=== PATIENT | female | born 1970 | race Caucasian/White ===

== ENCOUNTER 2016-05-09 18:56 | Emergency (ER) | payer MEDICAID ==
[~2016-05-09] VITALS: Ht 167.6 cm; Wt 90.0 kg
[~2016-05-09 18:56] MED LIST: RISPC50 IM
[2016-05-09 18:59] VITALS: BP 140/81
== END 2016-05-09 20:27 | disposition left against medical advice (07) ==
LOC: EMS 18:58
DX: R06.02 Shortness of breath (principal); F12.90 Cannabis use, unspecified, uncomplicated; F15.90 Other stimulant use, unspecified, uncomplicated; F17.210 Nicotine dependence, cigarettes, uncomplicated; Z53.21 Procedure and treatment not carried out due to patient leaving prior to being seen by health care provider

== ENCOUNTER 2016-05-10 18:15 | Emergency (ER) | payer MEDICAID, OTHER ==
[~2016-05-10] VITALS: Ht 154.9 cm; Wt 73.6 kg
[2016-05-10 21:10] VITALS: BP 113/65
[2016-05-10] MEDS ORDERED: LORazepam 1 MG TABLET PO ONE (21:15)
== END 2016-05-10 21:58 | disposition home or self-care (01) ==
LOC: EMS 18:16
DX: F41.9 Anxiety disorder, unspecified (principal); R06.4 Hyperventilation; F12.90 Cannabis use, unspecified, uncomplicated; F15.90 Other stimulant use, unspecified, uncomplicated; F17.210 Nicotine dependence, cigarettes, uncomplicated
CPT/HCPCS: 99282

== ENCOUNTER 2016-05-26 12:24 | Emergency (ER) | payer OTHER ==
[~2016-05-26] VITALS: Ht 154.9 cm; Wt 73.6 kg
[2016-05-26 12:44] VITALS: BP 133/84
== END 2016-05-26 16:57 | disposition left against medical advice (07) ==
LOC: EMS 12:26
DX: F41.9 Anxiety disorder, unspecified (principal); F31.9 Bipolar disorder, unspecified; F20.9 Schizophrenia, unspecified; F17.210 Nicotine dependence, cigarettes, uncomplicated; F12.90 Cannabis use, unspecified, uncomplicated; F15.90 Other stimulant use, unspecified, uncomplicated; Z53.21 Procedure and treatment not carried out due to patient leaving prior to being seen by health care provider

== ENCOUNTER 2016-06-16 12:59 | Emergency (ER) | payer OTHER ==
[~2016-06-16] VITALS: Ht 154.9 cm; Wt 73.6 kg
[2016-06-16 14:51] LABS: BASOPHILS % (AUTO) 0.8 % (0.0-2.0); EOSINOPHILS % (AUTO) 4.7 % (1.0-6.0); HEMATOCRIT 39.8 % (36-46); HEMOGLOBIN 13.3 g/dL (12.0-16.0); LYMPHOCYTES # (AUTO) 1.5 K/uL (1.0-4.8); LYMPHOCYTES % (AUTO) 27.2 % (22.0-44.0); MEAN CORPUSCULAR HEMOGLOBIN 30.6 pg (26.0-34.0); MEAN CORPUSCULAR HGB CONC 33.5 G/dL (31.0-37.0); MEAN CORPUSCULAR VOLUME 91 fL (80-100); MONOCYTES # (AUTO) 0.4 K/uL (0.1-1.0); MONOCYTES % (AUTO) 6.7 % (2.0-9.0); NEUTROPHILS # (AUTO) 3.4 K/uL (1.8-7.7); NEUTROPHILS % (AUTO) 60.6 % (40.0-70.0); PLATELET COUNT (AUTO) 304 K/uL (150-450); RED BLOOD CELL COUNT(AUTO) 4.35 MIL/uL (4.00-5.20); RED CELL DISTRIBUTION WIDTH 14.1 % (11.5-14.5); WHITE BLOOD COUNT (AUTO) 5.7 K/uL (4.5-11.0)
[2016-06-16 15:22] LABS: ANION GAP 5 mmol/L (8-16); CALCIUM, TOTAL 8.7 mg/dL (8.8-10.5); CARBON DIOXIDE 28 mmol/L (22-29); CHLORIDE 101 mmol/L (98-107); CREATININE 0.71 mg/dL (0.60-1.30); GLOMERULAR FILTR. RATE CALC > 60 mL/min (>60); POTASSIUM 4.9 mmol/L (3.5-5.1); SODIUM SERUM 134 mmol/L (136-145); UREA NITROGEN, BLOOD 5 mg/dL (7-18)
[2016-06-16 15:29] LABS: ALANINE AMINOTRANSFERASE 49 U/L (12-78); ALBUMIN 3.6 g/dL (3.4-5.0); ASPARTATE AMINOTRANSFERASE 35 U/L (15-37); BILIRUBIN,TOTAL 0.3 mg/dL (0.1-1.0); TOTAL PROTEIN, SERUM 7.6 g/dL (6.4-8.2)
[2016-06-16] MEDS ORDERED: LORazepam 2 MG TABLET PO ONE (16:00)
[2016-06-16 16:47] VITALS: BP 140/100
== END 2016-06-16 18:14 | disposition home or self-care (01) ==
LOC: EMS 13:01
DX: F41.9 Anxiety disorder, unspecified (principal); F31.9 Bipolar disorder, unspecified; F20.9 Schizophrenia, unspecified; F17.210 Nicotine dependence, cigarettes, uncomplicated; F12.90 Cannabis use, unspecified, uncomplicated; F15.90 Other stimulant use, unspecified, uncomplicated
CPT/HCPCS: 36415; 80053; 80307; 85025; 99284; G0480

== ENCOUNTER 2016-09-22 01:40 | Emergency (ER) | payer OTHER ==
[~2016-09-22] VITALS: Ht 154.9 cm; Wt 69.1 kg
[2016-09-22] MEDS ORDERED: RISP4 PO (01:58)
[2016-09-22 02:38] VITALS: BP 126/72
== END 2016-09-22 02:40 | disposition home or self-care (01) ==
LOC: EMS 01:41
DX: S80.861A Insect bite (nonvenomous), right lower leg, initial encounter (principal); S80.862A Insect bite (nonvenomous), left lower leg, initial encounter; F25.9 Schizoaffective disorder, unspecified; F31.9 Bipolar disorder, unspecified; F12.90 Cannabis use, unspecified, uncomplicated; F15.90 Other stimulant use, unspecified, uncomplicated; F17.210 Nicotine dependence, cigarettes, uncomplicated; W57.XXXA Bitten or stung by nonvenomous insect and other nonvenomous arthropods, initial encounter; Y93.89 Activity, other specified; Y92.89 Other specified places as the place of occurrence of the external cause; Y99.8 Other external cause status
CPT/HCPCS: 99282; 99406

== ENCOUNTER 2016-09-29 08:55 | Emergency (ER) | payer OTHER ==
[~2016-09-29] VITALS: Ht 154.9 cm; Wt 75.0 kg
[~2016-09-29 08:55] MED LIST changes: +RISP4 PO; -RISPC50 IM
[2016-09-29 09:52] VITALS: BP 130/81
[2016-09-29] MEDS ORDERED: LORazepam 1 MG TABLET PO ONE (10:45)
== END 2016-09-29 11:16 | disposition home or self-care (01) ==
LOC: EMS 08:57
DX: F25.9 Schizoaffective disorder, unspecified (principal); F41.9 Anxiety disorder, unspecified; F31.9 Bipolar disorder, unspecified; F12.90 Cannabis use, unspecified, uncomplicated; F15.90 Other stimulant use, unspecified, uncomplicated; F17.210 Nicotine dependence, cigarettes, uncomplicated
CPT/HCPCS: 99284

== ENCOUNTER 2016-10-17 21:39 | Emergency (ER) | payer OTHER ==
[~2016-10-17] VITALS: Ht 154.9 cm; Wt 73.0 kg
[2016-10-17 21:46] VITALS: BP 131/89
[2016-10-17 22:24] LABS: BASOPHILS # (AUTO) 0.04 K/uL (0.00-0.20); BASOPHILS % (AUTO) 0.4 % (0.0-2.0); EOSINOPHILS # (AUTO) 0.08 K/uL (0.00-0.70); EOSINOPHILS % (AUTO) 0.73 % (1.0-6.0); HEMATOCRIT 39.3 % (36-46); HEMOGLOBIN 13.2 g/dL (12.0-16.0); LYMPHOCYTES # (AUTO) 2.4 K/uL (1.0-4.8); LYMPHOCYTES % (AUTO) 21.6 % (22.0-44.0); MEAN CORPUSCULAR HEMOGLOBIN 31.5 pg (26.0-34.0); MEAN CORPUSCULAR HGB CONC 33.4 G/dL (31.0-37.0); MEAN CORPUSCULAR VOLUME 94 fL (80-100); MONOCYTES # (AUTO) 0.8 K/uL (0.1-1.0); MONOCYTES % (AUTO) 6.8 % (2.0-9.0); NEUTROPHILS # (AUTO) 7.7 K/uL (1.8-7.7); NEUTROPHILS % (AUTO) 70.5 % (40.0-70.0); PLATELET COUNT (AUTO) 297 K/uL (150-450); RED BLOOD CELL COUNT(AUTO) 4.17 MIL/uL (4.00-5.20); RED CELL DISTRIBUTION WIDTH 13.6 % (11.5-14.5); WHITE BLOOD COUNT (AUTO) 10.9 K/uL (4.5-11.0)
[2016-10-17 22:31] LABS: ANION GAP 10 mmol/L (8-16); CALCIUM, TOTAL 9.4 mg/dL (8.8-10.5); CARBON DIOXIDE 28 mmol/L (22-29); CHLORIDE 104 mmol/L (98-107); GLOMERULAR FILTR. RATE CALC > 60 mL/min (>60); SODIUM SERUM 142 mmol/L (136-145); UREA NITROGEN, BLOOD 11 mg/dL (7-18)
[2016-10-17 22:37] LABS: ALANINE AMINOTRANSFERASE 52 U/L (12-78); ALBUMIN 4.1 g/dL (3.4-5.0); ASPARTATE AMINOTRANSFERASE 41 U/L (15-37); BILIRUBIN,TOTAL 1.1 mg/dL (0.1-1.0); TOTAL PROTEIN, SERUM 8.1 g/dL (6.4-8.2)
== END 2016-10-17 22:30 | disposition left against medical advice (07) ==
LOC: EMS 21:43
DX: Z00.8 Encounter for other general examination (principal); F31.9 Bipolar disorder, unspecified; F20.9 Schizophrenia, unspecified; F41.9 Anxiety disorder, unspecified; F12.90 Cannabis use, unspecified, uncomplicated; F15.90 Other stimulant use, unspecified, uncomplicated; F17.210 Nicotine dependence, cigarettes, uncomplicated
CPT/HCPCS: 36415; 80053; 84703; 85025; G0480

== ENCOUNTER 2016-11-10 16:35 | Emergency (ER) | payer OTHER ==
[2016-11-10] MEDS ORDERED: RISPC50 IM (23:58)
== END 2016-11-10 18:07 | disposition left against medical advice (07) ==
LOC: EMS 16:38
DX: M79.673 Pain in unspecified foot (principal); Z53.21 Procedure and treatment not carried out due to patient leaving prior to being seen by health care provider

== ENCOUNTER 2016-11-10 23:19 | Emergency (ER) | payer OTHER ==
[~2016-11-10] VITALS: Ht 157.5 cm; Wt 70.5 kg
[2016-11-10 23:50] VITALS: BP 124/80
[2016-11-10] MEDS ORDERED: RISPC50 IM (23:58)
[2016-11-11 00:34] LABS: BASOPHILS # (AUTO) 0.05 K/uL (0.00-0.20); BASOPHILS % (AUTO) 0.7 % (0.0-2.0); EOSINOPHILS # (AUTO) 0.33 K/uL (0.00-0.70); EOSINOPHILS % (AUTO) 4.78 % (1.0-6.0); HEMOGLOBIN 13.1 g/dL (12.0-16.0); LYMPHOCYTES # (AUTO) 2.6 K/uL (1.0-4.8); LYMPHOCYTES % (AUTO) 38.1 % (22.0-44.0); MEAN CORPUSCULAR HEMOGLOBIN 31.9 pg (26.0-34.0); MEAN CORPUSCULAR HGB CONC 33.6 G/dL (31.0-37.0); MEAN CORPUSCULAR VOLUME 95 fL (80-100); MONOCYTES # (AUTO) 0.4 K/uL (0.1-1.0); MONOCYTES % (AUTO) 5.8 % (2.0-9.0); NEUTROPHILS # (AUTO) 3.5 K/uL (1.8-7.7); NEUTROPHILS % (AUTO) 50.6 % (40.0-70.0); PLATELET COUNT (AUTO) 233 K/uL (150-450); RED BLOOD CELL COUNT(AUTO) 4.11 MIL/uL (4.00-5.20); RED CELL DISTRIBUTION WIDTH 13.7 % (11.5-14.5); WHITE BLOOD COUNT (AUTO) 6.9 K/uL (4.5-11.0)
[2016-11-11 00:48] LABS: ANION GAP 7 mmol/L (8-16); CALCIUM, TOTAL 9.1 mg/dL (8.8-10.5); CARBON DIOXIDE 27 mmol/L (22-29); CHLORIDE 105 mmol/L (98-107); CREATININE 0.72 mg/dL (0.60-1.30); GLOMERULAR FILTR. RATE CALC > 60 mL/min (>60); POTASSIUM 4.3 mmol/L (3.5-5.1); SODIUM SERUM 139 mmol/L (136-145); UREA NITROGEN, BLOOD 7 mg/dL (7-18)
[2016-11-11 00:53] LABS: ALANINE AMINOTRANSFERASE 34 U/L (12-78); ALBUMIN 3.6 g/dL (3.4-5.0); ASPARTATE AMINOTRANSFERASE 24 U/L (15-37); BILIRUBIN,TOTAL 0.2 mg/dL (0.1-1.0)
== END 2016-11-11 02:49 | disposition left against medical advice (07) ==
LOC: EMS 23:21
DX: M79.672 Pain in left foot (principal); M79.671 Pain in right foot; F17.210 Nicotine dependence, cigarettes, uncomplicated; F12.90 Cannabis use, unspecified, uncomplicated; F19.90 Other psychoactive substance use, unspecified, uncomplicated; Z53.21 Procedure and treatment not carried out due to patient leaving prior to being seen by health care provider

== ENCOUNTER 2016-11-14 23:59 | Emergency (ER) | payer OTHER ==
[~2016-11-14] VITALS: Ht 167.6 cm; Wt 86.4 kg
[~2016-11-14 23:59] MED LIST changes: -RISP4 PO; +RISPC50 IM
[2016-11-15 00:24] VITALS: BP 146/71
== END 2016-11-15 02:00 | disposition left against medical advice (07) ==
LOC: EMS 11-15 00:01
DX: Z00.8 Encounter for other general examination (principal); F31.9 Bipolar disorder, unspecified; F20.9 Schizophrenia, unspecified; F17.210 Nicotine dependence, cigarettes, uncomplicated; F12.90 Cannabis use, unspecified, uncomplicated; F15.90 Other stimulant use, unspecified, uncomplicated; Z53.21 Procedure and treatment not carried out due to patient leaving prior to being seen by health care provider

== ENCOUNTER 2016-12-09 23:36 | Emergency (ER) | payer OTHER ==
[~2016-12-09] VITALS: Ht 154.9 cm; Wt 70.0 kg
[2016-12-09 23:56] VITALS: BP 136/88
[2016-12-10 00:28] LABS: BASOPHILS # (AUTO) 0.02 K/uL (0.00-0.20); BASOPHILS % (AUTO) 0.3 % (0.0-2.0); EOSINOPHILS # (AUTO) 0.13 K/uL (0.00-0.70); EOSINOPHILS % (AUTO) 1.81 % (1.0-6.0); HEMATOCRIT 37.2 % (36-46); HEMOGLOBIN 12.5 g/dL (12.0-16.0); LYMPHOCYTES # (AUTO) 1.8 K/uL (1.0-4.8); LYMPHOCYTES % (AUTO) 24.5 % (22.0-44.0); MEAN CORPUSCULAR HGB CONC 33.8 G/dL (31.0-37.0); MEAN CORPUSCULAR VOLUME 95 fL (80-100); MONOCYTES # (AUTO) 0.4 K/uL (0.1-1.0); MONOCYTES % (AUTO) 5.9 % (2.0-9.0); NEUTROPHILS % (AUTO) 67.5 % (40.0-70.0); PLATELET COUNT (AUTO) 245 K/uL (150-450); RED BLOOD CELL COUNT(AUTO) 3.92 MIL/uL (4.00-5.20); RED CELL DISTRIBUTION WIDTH 13.5 % (11.5-14.5); WHITE BLOOD COUNT (AUTO) 7.4 K/uL (4.5-11.0)
[2016-12-10 00:37] LABS: ANION GAP 8 mmol/L (8-16); CALCIUM, TOTAL 8.8 mg/dL (8.8-10.5); CARBON DIOXIDE 29 mmol/L (22-29); CHLORIDE 105 mmol/L (98-107); CREATININE 0.69 mg/dL (0.60-1.30); GLOMERULAR FILTR. RATE CALC > 60 mL/min (>60); POTASSIUM 4.3 mmol/L (3.5-5.1); SODIUM SERUM 142 mmol/L (136-145); UREA NITROGEN, BLOOD 6 mg/dL (7-18)
[2016-12-10 00:43] LABS: ALANINE AMINOTRANSFERASE 36 U/L (12-78); ALBUMIN 3.6 g/dL (3.4-5.0); ASPARTATE AMINOTRANSFERASE 26 U/L (15-37); BILIRUBIN,TOTAL 0.2 mg/dL (0.1-1.0); TOTAL PROTEIN, SERUM 7.3 g/dL (6.4-8.2)
== END 2016-12-10 00:43 | disposition left against medical advice (07) ==
LOC: EMS 23:37
DX: F41.9 Anxiety disorder, unspecified (principal); F31.9 Bipolar disorder, unspecified; F17.210 Nicotine dependence, cigarettes, uncomplicated; F12.90 Cannabis use, unspecified, uncomplicated; F19.90 Other psychoactive substance use, unspecified, uncomplicated; Z53.21 Procedure and treatment not carried out due to patient leaving prior to being seen by health care provider
CPT/HCPCS: 36415; 80053; 84703; 85025; G0480

== ENCOUNTER 2016-12-22 10:20 | Inpatient (IN) | payer MEDICAID, OTHER ==
[~2016-12-22] VITALS: Ht 157.5 cm; Wt 76.5 kg
[2016-12-22] MEDS ORDERED: ZOLPIDEM TARTRATE 10 MG TABLET PO PRN (11:45)
[2016-12-22 13:05] LABS: ANION GAP 8 mmol/L (8-16); BASOPHILS % (AUTO) 0.7 % (0.0-2.0); CALCIUM, TOTAL 8.7 mg/dL (8.8-10.5); CARBON DIOXIDE 27 mmol/L (22-29); CHLORIDE 108 mmol/L (98-107); EOSINOPHILS % (AUTO) 2.6 % (1.0-6.0); GLOMERULAR FILTR. RATE CALC > 60 mL/min (>60); HEMATOCRIT 37.1 % (36-46); HEMOGLOBIN 12.9 g/dL (12.0-16.0); LYMPHOCYTES # (AUTO) 1.9 K/uL (1.0-4.8); LYMPHOCYTES % (AUTO) 26.7 % (22.0-44.0); MEAN CORPUSCULAR HEMOGLOBIN 32.5 pg (26.0-34.0); MEAN CORPUSCULAR HGB CONC 34.8 G/dL (31.0-37.0); MEAN CORPUSCULAR VOLUME 93 fL (80-100); MONOCYTES # (AUTO) 0.4 K/uL (0.1-1.0); MONOCYTES % (AUTO) 5.3 % (2.0-9.0); NEUTROPHILS # (AUTO) 4.7 K/uL (1.8-7.7); NEUTROPHILS % (AUTO) 64.7 % (40.0-70.0); PLATELET COUNT (AUTO) 264 K/uL (150-450); POTASSIUM 4.3 mmol/L (3.5-5.1); RED BLOOD CELL COUNT(AUTO) 3.98 MIL/uL (4.00-5.20); RED CELL DISTRIBUTION WIDTH 13.8 % (11.5-14.5); SODIUM SERUM 143 mmol/L (136-145); UREA NITROGEN, BLOOD 8 mg/dL (7-18); WHITE BLOOD COUNT (AUTO) 7.3 K/uL (4.5-11.0)
[2016-12-22 13:10] LABS: ALANINE AMINOTRANSFERASE 38 U/L (12-78); ALBUMIN 3.5 g/dL (3.4-5.0); ASPARTATE AMINOTRANSFERASE 26 U/L (15-37); BILIRUBIN,TOTAL 0.3 mg/dL (0.1-1.0); TOTAL PROTEIN, SERUM 7.1 g/dL (6.4-8.2)
[2016-12-22] MEDS: HALOPERIDOL 5 MG TABLET PO PRN (13:53)
[2016-12-22] MEDS: LORazepam 2 MG TABLET PO PRN (13:53)
[2016-12-22 14:10] VITALS: BP 127/86
[2016-12-23 05:33] LABS: CHOL/HDL RATIO 3.2 (3.9-5.7)
[2016-12-23] MEDS: LORazepam 2 MG TABLET PO PRN (07:43)
[2016-12-23] MEDS: HALOPERIDOL 5 MG TABLET PO PRN (07:43)
[2016-12-23 08:03] VITALS: BP_SYST 113; BP_SYST 114; BP_DIAS 65; BP_DIAS 77
[2016-12-23] MEDS ORDERED: RisperiDONE MICROSPHERES 50 MG/2 ML SYRINGE IM ONE (12:30)
[2016-12-23] MEDS: QUEtiapine FUMARATE 200 MG TABLET PO SCH ×2 (16:00→20:20)
[2016-12-23] MEDS: DIVALPROEX SODIUM 500 MG ER TABLET PO SCH (20:16)
[2016-12-23] MEDS ORDERED: ACETAMINOPHEN 325 MG TABLET PO PRN (22:00)
[2016-12-23] MEDS ORDERED: IBUPROFEN 400 MG TABLET PO PRN (22:00)
[2016-12-23 22:34] VITALS: BP 112/61
[2016-12-24 00:08] VITALS: BP 116/75
[2016-12-24 08:13] VITALS: BP 102/64
[2016-12-24 08:46] LABS: HEMOGLOBIN A1C 5.9 % (4.5-6.2)
[2016-12-24 08:55] LABS: THYROID STIMULATING HORMONE 0.53 uIU/mL (0.36-3.74)
[2016-12-24] MEDS: QUEtiapine FUMARATE 200 MG TABLET PO SCH ×3 (09:00→17:00)
[2016-12-24] MEDS: HALOPERIDOL 5 MG TABLET PO PRN (13:34)
[2016-12-24 16:33] VITALS: BP 117/69
[2016-12-24] MEDS: LORazepam 2 MG TABLET PO PRN (18:35)
[2016-12-24] MEDS: DIVALPROEX SODIUM 500 MG ER TABLET PO SCH (20:12)
[2016-12-25 00:48] VITALS: BP 104/60
[2016-12-25 08:31] VITALS: BP 101/62
[2016-12-25] MEDS: QUEtiapine FUMARATE 200 MG TABLET PO SCH ×4 (09:00→17:00)
[2016-12-25] MEDS: NICOTINE 14 MG/24 HOUR PATCH TD SCH (09:38)
[2016-12-25] MEDS: LORazepam 2 MG TABLET PO PRN ×2 (13:02→20:03)
[2016-12-25 16:41] VITALS: BP 107/60
[2016-12-25] MEDS: DIVALPROEX SODIUM 500 MG ER TABLET PO SCH (20:03)
[2016-12-26 01:27] VITALS: BP 107/62
[2016-12-26] MEDS: QUEtiapine FUMARATE 200 MG TABLET PO SCH ×3 (09:00→17:38)
[2016-12-26] MEDS: NICOTINE 14 MG/24 HOUR PATCH TD SCH (09:21)
[2016-12-26 09:24] VITALS: BP 95/55
[2016-12-26 16:36] VITALS: BP 114/67
[2016-12-26] MEDS: LORazepam 2 MG TABLET PO PRN (17:38)
[2016-12-26] MEDS: DIVALPROEX SODIUM 500 MG ER TABLET PO SCH (20:24)
[2016-12-27 00:53] VITALS: BP 110/64
[2016-12-27] MEDS: LORazepam 2 MG TABLET PO PRN (08:08)
[2016-12-27] MEDS: NICOTINE 14 MG/24 HOUR PATCH TD SCH (08:08)
[2016-12-27] MEDS: QUEtiapine FUMARATE 200 MG TABLET PO SCH ×4 (08:08→13:00)
[2016-12-27 09:11] VITALS: BP 101/68
[2016-12-27] MEDS ORDERED: DIVA500T52 PO (12:56)
[2016-12-27] MEDS ORDERED: QUET200T PO (12:56)
== END 2016-12-27 14:15 | disposition home or self-care (01) | DRG 750 ==
LOC: EMS 10:24 → AHU 12:04 → B2S 12-23 22:45
PROVIDERS: ADMIT Psychiatry & Neurology Psychiatry; ATTEND Psychiatry & Neurology Psychiatry
DX: F20.0 Paranoid schizophrenia (principal); E11.9 Type 2 diabetes mellitus without complications; R45.851 Suicidal ideations; I10 Essential (primary) hypertension; E78.5 Hyperlipidemia, unspecified; F11.90 Opioid use, unspecified, uncomplicated; F15.90 Other stimulant use, unspecified, uncomplicated; F17.200 Nicotine dependence, unspecified, uncomplicated; F31.9 Bipolar disorder, unspecified; M19.90 Unspecified osteoarthritis, unspecified site; Z90.49 Acquired absence of other specified parts of digestive tract
CPT/HCPCS: 83036; 84443; 99285; G0480; J2794

== ENCOUNTER 2017-02-03 10:20 | Emergency (ER) | payer MEDICAID, OTHER ==
[~2017-02-03] VITALS: Ht 162.6 cm; Wt 68.1 kg
[~2017-02-03 10:20] MED LIST changes: +DIVA500T52 PO; +QUET200T PO; -RISPC50 IM
[2017-02-03 10:24] VITALS: BP 133/77
[2017-02-03] MEDS ORDERED: RISPC50 IM (10:25)
== END 2017-02-03 11:11 | disposition home or self-care (01) ==
LOC: EMS 10:24
DX: F20.9 Schizophrenia, unspecified (principal); F31.9 Bipolar disorder, unspecified; F41.9 Anxiety disorder, unspecified; F17.210 Nicotine dependence, cigarettes, uncomplicated
CPT/HCPCS: 99284

== ENCOUNTER 2017-02-27 21:19 | Emergency (ER) | payer OTHER ==
[~2017-02-27] VITALS: Ht 154.9 cm; Wt 69.1 kg
[~2017-02-27 21:19] MED LIST changes: -QUET200T PO; +RISPC50 IM
[2017-02-27 21:23] VITALS: BP 122/95
== END 2017-02-27 21:51 | disposition left against medical advice (07) ==
LOC: EMS 21:20
DX: Z00.8 Encounter for other general examination (principal); F41.9 Anxiety disorder, unspecified; F31.9 Bipolar disorder, unspecified; F17.210 Nicotine dependence, cigarettes, uncomplicated; F19.90 Other psychoactive substance use, unspecified, uncomplicated; Z53.21 Procedure and treatment not carried out due to patient leaving prior to being seen by health care provider

== ENCOUNTER 2017-07-01 13:55 | Emergency (ER) | payer OTHER ==
[~2017-07-01] VITALS: Ht 154.9 cm; Wt 65.9 kg
[2017-07-01 14:06] VITALS: BP 113/75
== END 2017-07-01 17:27 | disposition left against medical advice (07) ==
LOC: EMS 13:56
DX: Z53.21 Procedure and treatment not carried out due to patient leaving prior to being seen by health care provider (principal)

== ENCOUNTER 2017-07-07 06:06 | Emergency (ER) | payer OTHER ==
[~2017-07-07] VITALS: Ht 157.5 cm; Wt 75.0 kg
[2017-07-07 06:07] VITALS: BP 118/62
== END 2017-07-07 07:07 | disposition left against medical advice (07) ==
LOC: EMS 06:07
DX: Z53.21 Procedure and treatment not carried out due to patient leaving prior to being seen by health care provider (principal)

== ENCOUNTER 2017-07-21 18:25 | Emergency (ER) | payer OTHER ==
[~2017-07-21 18:25] MED LIST changes: -DIVA500T52 PO
== END 2017-07-21 19:09 | disposition left against medical advice (07) ==
LOC: EMS 18:28
DX: Z53.21 Procedure and treatment not carried out due to patient leaving prior to being seen by health care provider (principal)

== ENCOUNTER 2017-09-12 16:54 | Emergency (ER) | payer OTHER ==
[~2017-09-12] VITALS: Ht 154.9 cm; Wt 65.9 kg
[2017-09-12 16:59] VITALS: BP 135/95
== END 2017-09-12 17:59 | disposition left against medical advice (07) ==
LOC: EMS 16:55
DX: Z00.8 Encounter for other general examination (principal); Z53.21 Procedure and treatment not carried out due to patient leaving prior to being seen by health care provider

== ENCOUNTER 2017-10-14 06:35 | Emergency (ER) | payer MEDICAID, OTHER ==
[~2017-10-14] VITALS: Ht 157.5 cm; Wt 64.5 kg
[~2017-10-14 06:35] MED LIST changes: -RISPC50 IM; +VITAD1000 PO
[2017-10-14 07:44] VITALS: BP 106/52
[2017-10-14 08:03] LABS: BASOPHILS % (AUTO) 1.2 % (0.0-2.0); EOSINOPHILS % (AUTO) 1.8 % (1.0-6.0); HEMATOCRIT 36.2 % (36-46); HEMOGLOBIN 12.5 g/dL (12.0-16.0); LYMPHOCYTES # (AUTO) 1.9 K/uL (1.0-4.8); LYMPHOCYTES % (AUTO) 29.2 % (22.0-44.0); MEAN CORPUSCULAR HEMOGLOBIN 31.3 pg (26.0-34.0); MEAN CORPUSCULAR HGB CONC 34.4 G/dL (31.0-37.0); MEAN CORPUSCULAR VOLUME 91 fL (80-100); MONOCYTES # (AUTO) 0.5 K/uL (0.1-1.0); MONOCYTES % (AUTO) 7.2 % (2.0-9.0); NEUTROPHILS % (AUTO) 60.6 % (40.0-70.0); PLATELET COUNT (AUTO) 222 K/uL (150-450); RED BLOOD CELL COUNT(AUTO) 3.98 MIL/uL (4.00-5.20); RED CELL DISTRIBUTION WIDTH 12.9 % (11.5-14.5)
[2017-10-14 08:17] LABS: ANION GAP 8 mmol/L (8-16); CALCIUM, TOTAL 8.9 mg/dL (8.8-10.5); CARBON DIOXIDE 29 mmol/L (22-29); CHLORIDE 102 mmol/L (98-107); CREATININE 0.76 mg/dL (0.60-1.30); GLOMERULAR FILTR. RATE CALC > 60 mL/min (>60); GLUCOSE,RANDOM 95 mg/dL (70-110); POTASSIUM 3.7 mmol/L (3.5-5.1); SODIUM SERUM 139 mmol/L (136-145); UREA NITROGEN, BLOOD 13 mg/dL (7-18)
[2017-10-14 08:20] LABS: ALANINE AMINOTRANSFERASE 52 U/L (12-78); ALBUMIN 3.8 g/dL (3.4-5.0); ALKALINE PHOSPHATASE 83 U/L (46-116); ASPARTATE AMINOTRANSFERASE 36 U/L (15-37); BILIRUBIN,TOTAL 0.5 mg/dL (0.1-1.0); TOTAL PROTEIN, SERUM 7.5 g/dL (6.4-8.2)
[2017-10-14 10:28] LABS: AMPHET/METH SCREEN,URINE POSITIVE (NEGATIVE); BARBITURATE SCREEN, URINE NEGATIVE (NEGATIVE); BENZODIAZEPINES SCREEN,URINE NEGATIVE (NEGATIVE); CANNABINOID SCREEN,URINE POSITIVE (NEGATIVE); COCAINE SCREEN,URINE NEGATIVE (NEGATIVE); METHADONE SCREEN, URINE NEGATIVE (NEGATIVE); OPIATE SCREEN,URINE NEGATIVE (NEGATIVE)
[2017-10-14 10:34] LABS: PHENCYCLIDINE SCREEN,URINE NEGATIVE (NEGATIVE)
== END 2017-10-14 12:55 | disposition home or self-care (01) ==
LOC: EMS 06:36
DX: F20.9 Schizophrenia, unspecified (principal); F31.9 Bipolar disorder, unspecified; F15.90 Other stimulant use, unspecified, uncomplicated; F17.210 Nicotine dependence, cigarettes, uncomplicated
CPT/HCPCS: 36415; 80053; 80307; 85025; 99285; 99406; G0480

== ENCOUNTER 2017-10-22 19:20 | Emergency (ER) | payer OTHER ==
[~2017-10-22] VITALS: Ht 154.9 cm; Wt 65.0 kg
[2017-10-22 20:14] LABS: BASOPHILS % (AUTO) 0.9 % (0.0-2.0); HEMATOCRIT 34.6 % (36-46); LYMPHOCYTES # (AUTO) 1.9 K/uL (1.0-4.8); LYMPHOCYTES % (AUTO) 30.9 % (22.0-44.0); MEAN CORPUSCULAR HEMOGLOBIN 31.6 pg (26.0-34.0); MEAN CORPUSCULAR HGB CONC 34.6 G/dL (31.0-37.0); MEAN CORPUSCULAR VOLUME 92 fL (80-100); MONOCYTES # (AUTO) 0.4 K/uL (0.1-1.0); MONOCYTES % (AUTO) 7.2 % (2.0-9.0); NEUTROPHILS # (AUTO) 3.4 K/uL (1.8-7.7); PLATELET COUNT (AUTO) 228 K/uL (150-450); RED BLOOD CELL COUNT(AUTO) 3.78 MIL/uL (4.00-5.20); RED CELL DISTRIBUTION WIDTH 13.4 % (11.5-14.5)
[2017-10-22 20:26] LABS: ANION GAP 5 mmol/L (8-16); CALCIUM, TOTAL 8.5 mg/dL (8.8-10.5); CARBON DIOXIDE 29 mmol/L (22-29); CHLORIDE 105 mmol/L (98-107); CREATININE 0.75 mg/dL (0.60-1.30); GLOMERULAR FILTR. RATE CALC > 60 mL/min (>60); GLUCOSE,RANDOM 108 mg/dL (70-110); POTASSIUM 3.8 mmol/L (3.5-5.1); SODIUM SERUM 139 mmol/L (136-145); UREA NITROGEN, BLOOD 13 mg/dL (7-18)
[2017-10-22 20:31] LABS: ALANINE AMINOTRANSFERASE 50 U/L (12-78); ALBUMIN 3.5 g/dL (3.4-5.0); ALKALINE PHOSPHATASE 88 U/L (46-116); ASPARTATE AMINOTRANSFERASE 27 U/L (15-37); BILIRUBIN,TOTAL 0.2 mg/dL (0.1-1.0); TOTAL PROTEIN, SERUM 6.9 g/dL (6.4-8.2)
[2017-10-22 21:40] VITALS: BP 121/84
== END 2017-10-22 21:58 | disposition home or self-care (01) ==
LOC: EMS 19:22
DX: F25.9 Schizoaffective disorder, unspecified (principal); F31.9 Bipolar disorder, unspecified; F17.210 Nicotine dependence, cigarettes, uncomplicated; F15.90 Other stimulant use, unspecified, uncomplicated
CPT/HCPCS: 36415; 80053; 84703; 85025; 99285; G0480

== ENCOUNTER 2018-02-01 14:28 | Emergency (ER) | payer OTHER ==
[~2018-02-01] VITALS: Ht 154.9 cm; Wt 69.1 kg
[2018-02-01] MEDS ORDERED: RISPC25 IM (14:44)
[2018-02-01 16:19] VITALS: BP 128/77
== END 2018-02-01 16:44 | disposition home or self-care (01) ==
LOC: EMS 14:30
DX: F20.9 Schizophrenia, unspecified (principal); F41.9 Anxiety disorder, unspecified; F31.9 Bipolar disorder, unspecified; F17.210 Nicotine dependence, cigarettes, uncomplicated; F15.90 Other stimulant use, unspecified, uncomplicated; Z90.49 Acquired absence of other specified parts of digestive tract; Z98.890 Other specified postprocedural states; Z79.899 Other long term (current) drug therapy
CPT/HCPCS: 99406

== ENCOUNTER 2018-02-04 13:52 | Inpatient (IN) | payer MEDICAID, OTHER ==
[~2018-02-04] VITALS: Ht 162.6 cm; Wt 76.4 kg
[~2018-02-04 13:52] MED LIST changes: +RISPC25 IM; -VITAD1000 PO
[2018-02-04] MEDS ORDERED: DiphenhydrAMINE HCL 50 MG/ML VIAL IM ONE (14:45)
[2018-02-04] MEDS ORDERED: HALOPERIDOL LACTATE 5 MG/ML VIAL IM ONE (14:45)
[2018-02-04] MEDS ORDERED: LORazepam 2 MG/ML VIAL IM ONE (14:45)
[2018-02-04 15:09] LABS: BASOPHILS % (AUTO) 0.6 % (0.0-2.0); EOSINOPHILS % (AUTO) 5.3 % (1.0-6.0); HEMATOCRIT 32.2 % (36-46); HEMOGLOBIN 11.2 g/dL (12.0-16.0); LYMPHOCYTES # (AUTO) 1.9 K/uL (1.0-4.8); LYMPHOCYTES % (AUTO) 33.5 % (22.0-44.0); MEAN CORPUSCULAR HEMOGLOBIN 32.7 pg (26.0-34.0); MEAN CORPUSCULAR HGB CONC 34.6 G/dL (31.0-37.0); MEAN CORPUSCULAR VOLUME 95 fL (80-100); MONOCYTES # (AUTO) 0.5 K/uL (0.1-1.0); MONOCYTES % (AUTO) 8.5 % (2.0-9.0); NEUTROPHILS # (AUTO) 2.9 K/uL (1.8-7.7); NEUTROPHILS % (AUTO) 52.1 % (40.0-70.0); PLATELET COUNT (AUTO) 243 K/uL (150-450); RED BLOOD CELL COUNT(AUTO) 3.41 MIL/uL (4.00-5.20); RED CELL DISTRIBUTION WIDTH 13.9 % (11.5-14.5)
[2018-02-04 15:19] LABS: ANION GAP 4 mmol/L (8-16); CALCIUM, TOTAL 8.3 mg/dL (8.8-10.5); CARBON DIOXIDE 28 mmol/L (22-29); CHLORIDE 107 mmol/L (98-107); CREATININE 0.72 mg/dL (0.60-1.30); GLOMERULAR FILTR. RATE CALC > 60 mL/min (>60); GLUCOSE,RANDOM 90 mg/dL (70-110); SODIUM SERUM 139 mmol/L (136-145); UREA NITROGEN, BLOOD 13 mg/dL (7-18)
[2018-02-04 15:40] LABS: ALANINE AMINOTRANSFERASE 72 U/L (12-78); ALBUMIN 3.3 g/dL (3.4-5.0); ALKALINE PHOSPHATASE 90 U/L (46-116); ASPARTATE AMINOTRANSFERASE 48 U/L (15-37); BILIRUBIN,TOTAL 0.2 mg/dL (0.1-1.0); HCG,QUANTITATIVE < 1 mIU/mL (0-6); TOTAL PROTEIN, SERUM 6.9 g/dL (6.4-8.2)
[2018-02-04] MEDS ORDERED: ZOLPIDEM TARTRATE 10 MG TABLET PO PRN (15:45)
[2018-02-04] MEDS ORDERED: HALOPERIDOL 5 MG TABLET PO PRN (15:45)
[2018-02-04 18:44] VITALS: BP 102/65
[2018-02-04] MEDS ORDERED: MAG HYDROX/AL HYDROX/SIMETH ES 30 ML SUSPENSION UDCUP PO PRN (19:15)
[2018-02-04] MEDS ORDERED: IBUPROFEN 400 MG TABLET PO PRN (19:15)
[2018-02-04] MEDS ORDERED: MAGNESIUM HYDROXIDE SUSPENSION 30 ML UDCUP PO PRN (19:15)
[2018-02-04] MEDS ORDERED: PETROLATUM,WHITE 71 GM JELLY TP PRN (19:15)
[2018-02-04] MEDS ORDERED: NICOTINE 14 MG/24 HOUR PATCH TD PRN (19:15)
[2018-02-04] MEDS ORDERED: ACETAMINOPHEN 325 MG TABLET PO PRN (19:15)
[2018-02-04] MEDS ORDERED: CloNIDine HCL 0.1 MG TABLET PO PRN (19:15)
[2018-02-04] MEDS ORDERED: ONDANSETRON HCL 4 MG TABLET PO PRN (19:15)
[2018-02-04] MEDS ORDERED: GuaiFENesin/D-METHORPHAN [SUGAR-FREE] 200-20MG/10 ML SYRUP UDCUP PO PRN (19:15)
[2018-02-04] MEDS ORDERED: ALBUTEROL SULFATE HFA 90 MCG/PUFF 8 GM INHALER IH PRN (19:15)
[2018-02-04] MEDS ORDERED: LOPERAMIDE HCL 2 MG CAPSULE PO PRN (19:15)
[2018-02-04] MEDS ORDERED: DOCUSATE SODIUM 100 MG CAPSULE PO PRN (19:15)
[2018-02-04 22:57] LABS: GLUCOMETER DEV NAME(LOC) BV3S 2; GLUCOSE,POINT OF CARE 92 MG/DL (70-110)
[2018-02-05 06:15] VITALS: BP 111/61
[2018-02-05 08:11] VITALS: BP 103/68
[2018-02-05 08:36] LABS: BASOPHILS % (AUTO) 0.5 % (0.0-2.0); EOSINOPHILS % (AUTO) 5.4 % (1.0-6.0); HEMOGLOBIN 11.8 g/dL (12.0-16.0); LYMPHOCYTES # (AUTO) 1.2 K/uL (1.0-4.8); MEAN CORPUSCULAR HEMOGLOBIN 33.5 pg (26.0-34.0); MEAN CORPUSCULAR HGB CONC 34.7 G/dL (31.0-37.0); MEAN CORPUSCULAR VOLUME 96 fL (80-100); MONOCYTES # (AUTO) 0.3 K/uL (0.1-1.0); MONOCYTES % (AUTO) 6.3 % (2.0-9.0); NEUTROPHILS # (AUTO) 3.3 K/uL (1.8-7.7); NEUTROPHILS % (AUTO) 63.8 % (40.0-70.0); PLATELET COUNT (AUTO) 245 K/uL (150-450); RED BLOOD CELL COUNT(AUTO) 3.53 MIL/uL (4.00-5.20); RED CELL DISTRIBUTION WIDTH 13.8 % (11.5-14.5)
[2018-02-05 09:02] LABS: ALANINE AMINOTRANSFERASE 69 U/L (12-78); ALBUMIN 3.1 g/dL (3.4-5.0); ALKALINE PHOSPHATASE 79 U/L (46-116); ANION GAP 1 mmol/L (8-16); ASPARTATE AMINOTRANSFERASE 53 U/L (15-37); BILIRUBIN,TOTAL 0.3 mg/dL (0.1-1.0); CALCIUM, TOTAL 8.7 mg/dL (8.8-10.5); CARBON DIOXIDE 32 mmol/L (22-29); CHLORIDE 106 mmol/L (98-107); CHOL/HDL RATIO 2.5 (3.9-5.7); CHOLESTEROL 149 mg/dL (131-200); CREATININE 0.73 mg/dL (0.60-1.30); FREE T4 (FREE THYROXINE) 0.75 ng/dL (0.76-1.46); GLOMERULAR FILTR. RATE CALC > 60 mL/min (>60); GLUCOSE,RANDOM 101 mg/dL (70-110); HDL CHOLESTEROL 59 mg/dL (40-60); LDL CHOL (CALC.) 76 mg/dL (0-130); POTASSIUM 4.4 mmol/L (3.5-5.1); SODIUM SERUM 139 mmol/L (136-145); THYROID STIMULATING HORMONE 0.62 uIU/mL (0.36-3.74); TOTAL PROTEIN, SERUM 6.3 g/dL (6.4-8.2); TRIGLYCERIDES 71 mg/dL (15-150); UREA NITROGEN, BLOOD 11 mg/dL (7-18)
[2018-02-05] MEDS ORDERED: RisperiDONE MICROSPHERES 25 MG/2 ML SYRINGE IM ONE (09:15)
[2018-02-05 17:53] VITALS: BP 128/72
[2018-02-05 23:12] LABS: GLUCOMETER DEV NAME(LOC) BV3S 2; GLUCOSE,POINT OF CARE 107 MG/DL (70-110)
[2018-02-05 23:12] LABS: GLUCOMETER DEV NAME(LOC) BV3S 2; GLUCOSE,POINT OF CARE 105 MG/DL (70-110)
[2018-02-06 06:28] VITALS: BP 102/63
[2018-02-06 06:33] LABS: GLUCOMETER DEV NAME(LOC) BV3S 2; GLUCOSE,POINT OF CARE 104 MG/DL (70-110)
[2018-02-06 08:27] VITALS: BP 109/65
[2018-02-06] MEDS: LORazepam 2 MG TABLET PO PRN (14:58)
[2018-02-06 16:03] VITALS: BP 105/65
[2018-02-07 01:22] VITALS: BP 111/67
[2018-02-07 06:57] LABS: GLUCOMETER DEV NAME(LOC) BV3S 2; GLUCOSE,POINT OF CARE 104 MG/DL (70-110)
[2018-02-07 07:38] LABS: GLUCOMETER DEV NAME(LOC) BV3S 2; GLUCOSE,POINT OF CARE 134 MG/DL (70-110)
[2018-02-07 08:00] VITALS: BP 98/60
[2018-02-07] MEDS: LORazepam 2 MG TABLET PO PRN (09:26)
[2018-02-07] MEDS ORDERED: RISPC50 IM (11:43)
[2018-02-19] MEDS ORDERED: RisperiDONE MICROSPHERES 50 MG/2 ML SYRINGE IM SCH (09:00)
== END 2018-02-07 13:45 | disposition home or self-care (01) | DRG 750 ==
LOC: EMS 13:53 → B3A 17:06
PROVIDERS: ADMIT Psychiatry & Neurology Child & Adolescent Psychiatry; ATTEND Psychiatry & Neurology Child & Adolescent Psychiatry
DX: F25.0 Schizoaffective disorder, bipolar type (principal); R45.851 Suicidal ideations; E11.9 Type 2 diabetes mellitus without complications; D64.9 Anemia, unspecified; E55.9 Vitamin D deficiency, unspecified; E78.5 Hyperlipidemia, unspecified; F17.200 Nicotine dependence, unspecified, uncomplicated; I10 Essential (primary) hypertension; M19.90 Unspecified osteoarthritis, unspecified site; F41.9 Anxiety disorder, unspecified; Z90.49 Acquired absence of other specified parts of digestive tract; Z71.6 Tobacco abuse counseling; F19.10 Other psychoactive substance abuse, uncomplicated; Z71.51 Drug abuse counseling and surveillance of drug abuser
CPT/HCPCS: 83036; 84436; 84439; 84443; 96372; G0480; J1200; J1630; J2060; J2794

== ENCOUNTER 2018-03-24 15:56 | Emergency (ER) | payer MEDICAID, OTHER ==
[~2018-03-24] VITALS: Ht 165.1 cm; Wt 69.1 kg
[~2018-03-24 15:56] MED LIST changes: -RISPC25 IM; +RISPC50 IM
[2018-03-24] MEDS ORDERED: LORazepam 1 MG TABLET PO ONE (16:30)
[2018-03-24 17:29] VITALS: BP 125/85
== END 2018-03-24 17:37 | disposition home or self-care (01) ==
LOC: EMS 15:56
DX: F41.9 Anxiety disorder, unspecified (principal); F31.9 Bipolar disorder, unspecified; F20.9 Schizophrenia, unspecified; F17.210 Nicotine dependence, cigarettes, uncomplicated; F19.90 Other psychoactive substance use, unspecified, uncomplicated
CPT/HCPCS: 99406

== ENCOUNTER 2018-06-28 22:55 | Emergency (ER) | payer OTHER | END 2018-06-28 23:07 | disposition left against medical advice (07) | LOC: EMS 22:57 | DX: Z00.00 Encounter for general adult medical examination without abnormal findings (principal); Z53.21 Procedure and treatment not carried out due to patient leaving prior to being seen by health care provider ==

== ENCOUNTER 2018-07-09 09:12 | Inpatient (IN) | payer MEDICAID, OTHER ==
[~2018-07-09] VITALS: Ht 157.5 cm; Wt 60.8 kg
[2018-07-09 11:20] LABS: BASOPHILS % (AUTO) 0.6 % (0.0-2.0); EOSINOPHILS % (AUTO) 1.5 % (1.0-6.0); HEMATOCRIT 37.1 % (36-46); HEMOGLOBIN 12.4 g/dL (12.0-16.0); LYMPHOCYTES # (AUTO) 1.7 K/uL (1.0-4.8); LYMPHOCYTES % (AUTO) 27.8 % (22.0-44.0); MEAN CORPUSCULAR HEMOGLOBIN 31.3 pg (26.0-34.0); MEAN CORPUSCULAR HGB CONC 33.5 G/dL (31.0-37.0); MEAN CORPUSCULAR VOLUME 93 fL (80-100); MONOCYTES # (AUTO) 0.4 K/uL (0.1-1.0); MONOCYTES % (AUTO) 7.2 % (2.0-9.0); NEUTROPHILS # (AUTO) 3.9 K/uL (1.8-7.7); NEUTROPHILS % (AUTO) 62.9 % (40.0-70.0); PLATELET COUNT (AUTO) 245 K/uL (150-450); RED BLOOD CELL COUNT(AUTO) 3.98 MIL/uL (4.00-5.20)
[2018-07-09] MEDS ORDERED: DiphenhydrAMINE HCL 25 MG CAPSULE PO ONE (11:30)
[2018-07-09] MEDS ORDERED: HALOPERIDOL 5 MG TABLET PO ONE (11:30)
[2018-07-09] MEDS ORDERED: LORazepam 2 MG TABLET PO ONE (11:30)
[2018-07-09 11:39] LABS: ALANINE AMINOTRANSFERASE 44 U/L (12-78); ALBUMIN 3.5 g/dL (3.4-5.0); ALKALINE PHOSPHATASE 82 U/L (46-116); ANION GAP 5 mmol/L (8-16); ASPARTATE AMINOTRANSFERASE 33 U/L (15-37); BILIRUBIN,TOTAL 0.3 mg/dL (0.1-1.0); CALCIUM, TOTAL 8.7 mg/dL (8.8-10.5); CARBON DIOXIDE 25 mmol/L (22-29); CHLORIDE 98 mmol/L (98-107); CREATININE 0.55 mg/dL (0.60-1.30); GLOMERULAR FILTR. RATE CALC > 60 mL/min (>60); GLUCOSE,RANDOM 89 mg/dL (70-110); SODIUM SERUM 128 mmol/L (136-145); TOTAL PROTEIN, SERUM 7.2 g/dL (6.4-8.2); UREA NITROGEN, BLOOD 9 mg/dL (7-18)
[2018-07-09] MEDS ORDERED: ZOLPIDEM TARTRATE 10 MG TABLET PO PRN (11:45)
[2018-07-09] MEDS ORDERED: POTASSIUM CHLORIDE 20 MEQ ER TABLET PO ONE (17:00)
[2018-07-09] MEDS ORDERED: CloNIDine HCL 0.1 MG TABLET PO PRN (18:15)
[2018-07-09] MEDS ORDERED: GLUCAGON,HUMAN RECOMBINANT 1 MG VIAL IM PRN (18:15)
[2018-07-09] MEDS ORDERED: MAG HYDROX/AL HYDROX/SIMETH ES 30 ML SUSPENSION UDCUP PO PRN (18:15)
[2018-07-09] MEDS ORDERED: ONDANSETRON HCL 4 MG TABLET PO PRN (18:15)
[2018-07-09] MEDS ORDERED: PETROLATUM,WHITE 28 GM JELLY TP PRN (18:15)
[2018-07-09] MEDS ORDERED: INSULIN LISPRO 100 UNITS/ML SQ PRN (18:15)
[2018-07-09] MEDS ORDERED: IBUPROFEN 600 MG TABLET PO PRN (18:15)
[2018-07-09] MEDS ORDERED: ACETAMINOPHEN 325 MG TABLET PO PRN (18:15)
[2018-07-09] MEDS ORDERED: ALBUTEROL SULFATE HFA 90 MCG/PUFF 8 GM INHALER IH PRN (18:15)
[2018-07-09] MEDS ORDERED: MAGNESIUM HYDROXIDE SUSPENSION 30 ML UDCUP PO PRN (18:15)
[2018-07-09] MEDS ORDERED: BENZOCAINE/MENTHOL LOZENGE MM PRN (18:15)
[2018-07-09] MEDS ORDERED: LOPERAMIDE HCL 2 MG CAPSULE PO PRN (18:15)
[2018-07-09] MEDS ORDERED: BACITRACIN 28.4 GM OINTMENT TP PRN (18:15)
[2018-07-09 18:20] LABS: GLUCOMETER DEV NAME(LOC) BV3S.; GLUCOSE,POINT OF CARE 79 MG/DL (70-110)
[2018-07-09] MEDS: HALOPERIDOL 5 MG TABLET PO SCH (21:00)
[2018-07-10 03:44] VITALS: BP 101/71
[2018-07-10 07:34] LABS: ANION GAP 8 mmol/L (8-16); CALCIUM, TOTAL 9.2 mg/dL (8.8-10.5); CARBON DIOXIDE 27 mmol/L (22-29); CHLORIDE 105 mmol/L (98-107); CREATININE 0.72 mg/dL (0.60-1.30); GLOMERULAR FILTR. RATE CALC > 60 mL/min (>60); GLUCOSE,RANDOM 87 mg/dL (70-110); POTASSIUM 4.5 mmol/L (3.5-5.1); SODIUM SERUM 140 mmol/L (136-145); UREA NITROGEN, BLOOD 10 mg/dL (7-18)
[2018-07-10] MEDS: DOCUSATE SODIUM 100 MG CAPSULE PO SCH (08:38)
[2018-07-10] MEDS: OMEPRAZOLE 20 MG CAPSULE PO SCH (08:38)
[2018-07-10 12:30] LABS: GLUCOMETER DEV NAME(LOC) BV3S.; GLUCOSE,POINT OF CARE 119 MG/DL (70-110)
[2018-07-10 14:21] VITALS: BP 104/68
[2018-07-10] MEDS: HALOPERIDOL 5 MG TABLET PO PRN (14:21)
[2018-07-10 16:47] VITALS: BP 108/68
[2018-07-10 17:34] LABS: GLUCOMETER DEV NAME(LOC) BV3S.; GLUCOSE,POINT OF CARE 104 MG/DL (70-110)
[2018-07-10 20:59] LABS: GLUCOMETER DEV NAME(LOC) BV3S.; GLUCOSE,POINT OF CARE 105 MG/DL (70-110)
[2018-07-10] MEDS: HALOPERIDOL 5 MG TABLET PO SCH (21:08)
[2018-07-10] MEDS: LORazepam 2 MG TABLET PO PRN (21:09)
[2018-07-11 06:03] VITALS: BP 114/62
[2018-07-11 07:19] LABS: GLUCOMETER DEV NAME(LOC) BV3S.; GLUCOSE,POINT OF CARE 92 MG/DL (70-110)
[2018-07-11 08:17] VITALS: BP 105/56
[2018-07-11] MEDS: OMEPRAZOLE 20 MG CAPSULE PO SCH (08:40)
[2018-07-11] MEDS: DOCUSATE SODIUM 100 MG CAPSULE PO SCH (08:40)
[2018-07-11 09:20] VITALS: BP 112/70
[2018-07-11] MEDS: LORazepam 2 MG TABLET PO PRN (09:29)
[2018-07-11 12:19] LABS: GLUCOMETER DEV NAME(LOC) BV3S.; GLUCOSE,POINT OF CARE 107 MG/DL (70-110)
[2018-07-11 17:09] LABS: GLUCOMETER DEV NAME(LOC) BV3S.; GLUCOSE,POINT OF CARE 96 MG/DL (70-110)
[2018-07-11 17:42] VITALS: BP 107/76
[2018-07-11] MEDS: HALOPERIDOL 5 MG TABLET PO SCH (21:06)
[2018-07-11 21:32] LABS: GLUCOMETER DEV NAME(LOC) BV3S.; GLUCOSE,POINT OF CARE 113 MG/DL (70-110)
[2018-07-12 00:22] VITALS: BP 123/72
[2018-07-12 06:24] LABS: GLUCOMETER DEV NAME(LOC) BV3S.; GLUCOSE,POINT OF CARE 92 MG/DL (70-110)
[2018-07-12 08:16] VITALS: BP 127/76
[2018-07-12] MEDS: DOCUSATE SODIUM 100 MG CAPSULE PO SCH (08:24)
[2018-07-12] MEDS: HALOPERIDOL 5 MG TABLET PO PRN ×2 (08:24→16:17)
[2018-07-12] MEDS: LORazepam 2 MG TABLET PO PRN ×2 (08:24→16:17)
[2018-07-12] MEDS: OMEPRAZOLE 20 MG CAPSULE PO SCH (08:24)
[2018-07-12 11:40] LABS: GLUCOMETER DEV NAME(LOC) BV3S.; GLUCOSE,POINT OF CARE 86 MG/DL (70-110)
[2018-07-12 16:47] VITALS: BP 110/60
[2018-07-12 17:20] LABS: GLUCOMETER DEV NAME(LOC) BV3S.; GLUCOSE,POINT OF CARE 115 MG/DL (70-110)
[2018-07-12] MEDS: HALOPERIDOL 5 MG TABLET PO SCH (21:14)
[2018-07-12 21:34] LABS: GLUCOMETER DEV NAME(LOC) BV3N.; GLUCOSE,POINT OF CARE 127 MG/DL (70-110)
[2018-07-13 06:30] LABS: GLUCOMETER DEV NAME(LOC) BV3S.; GLUCOSE,POINT OF CARE 93 MG/DL (70-110)
[2018-07-13 06:46] VITALS: BP 111/96
[2018-07-13] MEDS: DOCUSATE SODIUM 100 MG CAPSULE PO SCH (08:21)
[2018-07-13] MEDS: OMEPRAZOLE 20 MG CAPSULE PO SCH (08:21)
[2018-07-13] MEDS: LORazepam 2 MG TABLET PO PRN (08:58)
[2018-07-13 09:02] LABS: APPEARANCE,URINE CLEAR (CLEAR); BILIRUBIN,URINE NEGATIVE (NEGATIVE); GLUCOSE, URINE (UA) NEGATIVE (NEGATIVE); KETONES,URINE NEGATIVE (NEGATIVE); LEUKOCYTE ESTERASE ,URINE TRACE (NEGATIVE); NITRATE,URINE NEGATIVE (NEGATIVE); UROBILINOGEN,URINE 0.2 mg/dL (<=1.0)
[2018-07-13 09:12] LABS: AMPHET/METH SCREEN,URINE POSITIVE (NEGATIVE); BARBITURATE SCREEN, URINE NEGATIVE (NEGATIVE); BENZODIAZEPINES SCREEN,URINE NEGATIVE (NEGATIVE); CANNABINOID SCREEN,URINE NEGATIVE (NEGATIVE); COCAINE SCREEN,URINE NEGATIVE (NEGATIVE); METHADONE SCREEN, URINE NEGATIVE (NEGATIVE); OPIATE SCREEN,URINE NEGATIVE (NEGATIVE)
[2018-07-13 09:29] LABS: PHENCYCLIDINE SCREEN,URINE NEGATIVE (NEGATIVE)
[2018-07-13 10:27] LABS: OCCULT BLOOD,URINE TRACE (NEGATIVE)
[2018-07-13 10:28] LABS: BACTERIA,URINE None Seen /HPF (None Seen); PROTEIN,URINE NEGATIVE (NEGATIVE); RBC,URINE 0-2 /HPF (0-2); WBC,URINE 0-2 /HPF (0-5)
[2018-07-13 12:16] LABS: GLUCOMETER DEV NAME(LOC) BV3S.; GLUCOSE,POINT OF CARE 117 MG/DL (70-110)
[2018-07-13 16:35] VITALS: BP 112/74
[2018-07-13 17:35] LABS: GLUCOMETER DEV NAME(LOC) BV3S.; GLUCOSE,POINT OF CARE 118 MG/DL (70-110)
[2018-07-13] MEDS: HALOPERIDOL 5 MG TABLET PO SCH (21:14)
[2018-07-13 22:26] LABS: GLUCOMETER DEV NAME(LOC) BV3S.; GLUCOSE,POINT OF CARE 159 MG/DL (70-110)
[2018-07-14 00:26] VITALS: BP 108/68
[2018-07-14 06:25] LABS: GLUCOMETER DEV NAME(LOC) BV3S.; GLUCOSE,POINT OF CARE 100 MG/DL (70-110)
[2018-07-14] MEDS: DOCUSATE SODIUM 100 MG CAPSULE PO SCH (08:09)
[2018-07-14] MEDS: OMEPRAZOLE 20 MG CAPSULE PO SCH (08:09)
[2018-07-14 08:17] VITALS: BP 105/61
[2018-07-14] MEDS: LORazepam 2 MG TABLET PO PRN ×2 (08:55→16:06)
[2018-07-14 11:50] LABS: GLUCOMETER DEV NAME(LOC) BV3S.; GLUCOSE,POINT OF CARE 95 MG/DL (70-110)
[2018-07-14 16:08] VITALS: BP 113/61
[2018-07-14 16:55] LABS: GLUCOMETER DEV NAME(LOC) BV3S.; GLUCOSE,POINT OF CARE 123 MG/DL (70-110)
[2018-07-14] MEDS: HALOPERIDOL 5 MG TABLET PO SCH (20:30)
[2018-07-14 21:22] LABS: GLUCOMETER DEV NAME(LOC) BV3S.; GLUCOSE,POINT OF CARE 105 MG/DL (70-110)
[2018-07-15 06:36] LABS: GLUCOMETER DEV NAME(LOC) BV3S.; GLUCOSE,POINT OF CARE 88 MG/DL (70-110)
[2018-07-15 06:41] VITALS: BP 108/63
[2018-07-15 08:36] VITALS: BP 108/60
[2018-07-15] MEDS: DOCUSATE SODIUM 100 MG CAPSULE PO SCH (09:15)
[2018-07-15] MEDS: HALOPERIDOL 5 MG TABLET PO PRN (09:16)
[2018-07-15] MEDS: LORazepam 2 MG TABLET PO PRN (09:16)
[2018-07-15] MEDS: OMEPRAZOLE 20 MG CAPSULE PO SCH (09:16)
[2018-07-15 11:15] LABS: GLUCOMETER DEV NAME(LOC) BV3S.; GLUCOSE,POINT OF CARE 95 MG/DL (70-110)
[2018-07-15] MEDS ORDERED: OMEP20 PO (12:12)
[2018-07-15] MEDS ORDERED: DSS100 PO (12:12)
[2018-07-15] MEDS ORDERED: HALO10 PO (12:12)
[2018-07-15] MEDS ORDERED: RISPC50 IM (12:28)
[2018-07-18] MEDS ORDERED: RisperiDONE MICROSPHERES 50 MG/2 ML SYRINGE IM ONE (09:00)
== END 2018-07-15 13:55 | DRG 750 ==
LOC: EMS 09:13 → B3A 16:18
PROVIDERS: ADMIT Psychiatry & Neurology Psychiatry; ATTEND Psychiatry & Neurology Psychiatry
DX: F20.9 Schizophrenia, unspecified (principal); E87.1 Hypo-osmolality and hyponatremia; E55.9 Vitamin D deficiency, unspecified; E87.6 Hypokalemia; F12.90 Cannabis use, unspecified, uncomplicated; F15.10 Other stimulant abuse, uncomplicated; F31.9 Bipolar disorder, unspecified; K21.9 Gastro-esophageal reflux disease without esophagitis; Z87.891 Personal history of nicotine dependence; Z90.49 Acquired absence of other specified parts of digestive tract; Z79.899 Other long term (current) drug therapy
CPT/HCPCS: 80307; G0480

== ENCOUNTER 2020-03-05 13:41 | Emergency (ER) | payer MEDICAID, OTHER ==
[~2020-03-05] VITALS: Ht 154.9 cm; Wt 73.6 kg
[~2020-03-05 13:41] MED LIST changes: +DSS100 PO; +HALO10 PO; +OMEP20 PO
[2020-03-05] MEDS ORDERED: HYD50 PO (14:59)
[2020-03-05 15:18] LABS: APPEARANCE,URINE CLEAR (CLEAR); BILIRUBIN,URINE NEGATIVE (NEGATIVE); GLUCOSE, URINE (UA) NEGATIVE (NEGATIVE); KETONES,URINE NEGATIVE (NEGATIVE); LEUKOCYTE ESTERASE ,URINE NEGATIVE (NEGATIVE); NITRATE,URINE NEGATIVE (NEGATIVE); OCCULT BLOOD,URINE NEGATIVE (NEGATIVE); PH,URINE 7.5 (5.0-8.0); PROTEIN,URINE NEGATIVE (NEGATIVE); UROBILINOGEN,URINE 0.2 mg/dL (<=1.0)
[2020-03-05 15:23] LABS: AMPHET/METH SCREEN,URINE NEGATIVE (NEGATIVE); BARBITURATE SCREEN, URINE NEGATIVE (NEGATIVE); BENZODIAZEPINES SCREEN,URINE NEGATIVE (NEGATIVE); CANNABINOID SCREEN,URINE NEGATIVE (NEGATIVE); COCAINE SCREEN,URINE NEGATIVE (NEGATIVE); METHADONE SCREEN, URINE NEGATIVE (NEGATIVE); OPIATE SCREEN,URINE NEGATIVE (NEGATIVE)
[2020-03-05 15:24] LABS: PHENCYCLIDINE SCREEN,URINE NEGATIVE (NEGATIVE)
[2020-03-05 15:49] VITALS: BP 108/66
[2020-03-05 15:50] LABS: BASOPHILS % (AUTO) 0.6 % (0.0-2.0); EOSINOPHILS % (AUTO) 1.4 % (1.0-6.0); HEMATOCRIT 36.1 % (36-46); HEMOGLOBIN 12.7 g/dL (12.0-16.0); LYMPHOCYTES # (AUTO) 1.3 K/uL (1.0-4.8); LYMPHOCYTES % (AUTO) 21.6 % (22.0-44.0); MEAN CORPUSCULAR HEMOGLOBIN 32.7 pg (26.0-34.0); MEAN CORPUSCULAR HGB CONC 35.1 G/dL (31.0-37.0); MEAN CORPUSCULAR VOLUME 93 fL (80-100); MONOCYTES # (AUTO) 0.3 K/uL (0.1-1.0); MONOCYTES % (AUTO) 4.7 % (2.0-9.0); NEUTROPHILS # (AUTO) 4.2 K/uL (1.8-7.7); NEUTROPHILS % (AUTO) 71.7 % (40.0-70.0); PLATELET COUNT (AUTO) 225 K/uL (150-450); RED BLOOD CELL COUNT(AUTO) 3.87 MIL/uL (4.00-5.20); RED CELL DISTRIBUTION WIDTH 13.1 % (11.5-14.5)
[2020-03-05 16:00] LABS: ANION GAP 6 mmol/L (8-16); CALCIUM, TOTAL 8.8 mg/dL (8.8-10.5); CARBON DIOXIDE 27 mmol/L (22-29); CHLORIDE 106 mmol/L (98-107); CREATININE 0.74 mg/dL (0.60-1.30); GLOMERULAR FILTR. RATE CALC > 60 mL/min (>60); GLUCOSE,RANDOM 101 mg/dL (70-110); POTASSIUM 3.7 mmol/L (3.5-5.1); SODIUM SERUM 139 mmol/L (136-145); UREA NITROGEN, BLOOD 8 mg/dL (7-18)
[2020-03-05] MEDS ORDERED: LORazepam 1 MG TABLET PO ONE (16:00)
[2020-03-05 16:07] LABS: ALANINE AMINOTRANSFERASE 16 U/L (12-78); ALBUMIN 3.5 g/dL (3.4-5.0); ALKALINE PHOSPHATASE 81 U/L (46-116); ASPARTATE AMINOTRANSFERASE 17 U/L (15-37); BILIRUBIN,TOTAL 0.2 mg/dL (0.1-1.0); CREATINE KINASE, TOTAL ONLY 43 U/L (26-192); TOTAL PROTEIN, SERUM 6.8 g/dL (6.4-8.2)
[2020-03-05 16:21] LABS: B-TYPE NATRIURETIC PEPTIDE < 5 pg/mL (0-100)
== END 2020-03-05 16:54 | disposition home or self-care (01) ==
LOC: EMS 13:54
DX: F41.9 Anxiety disorder, unspecified (principal); R07.89 Other chest pain; F31.9 Bipolar disorder, unspecified; F20.9 Schizophrenia, unspecified; F17.210 Nicotine dependence, cigarettes, uncomplicated; F19.90 Other psychoactive substance use, unspecified, uncomplicated
CPT/HCPCS: 93005; 36415-L1; 36415-TC; 71045-TC; 81003-TC

== ENCOUNTER → 2021-01-15 | Emergency (ER) | payer OTHER ==
[~2021-01-15] VITALS: Ht 154.9 cm; Wt 79.5 kg
[~2021-01-15] MED LIST changes: +HYD50 PO
[2021-01-15 15:52] VITALS: BP 114/94
== END | disposition home or self-care (01) ==
LOC: EMS 15:37
DX: T63.441A Toxic effect of venom of bees, accidental (unintentional), initial encounter (principal); F15.10 Other stimulant abuse, uncomplicated; F25.9 Schizoaffective disorder, unspecified; F31.9 Bipolar disorder, unspecified; F41.9 Anxiety disorder, unspecified; F17.210 Nicotine dependence, cigarettes, uncomplicated; Z79.899 Other long term (current) drug therapy; Y92.89 Other specified places as the place of occurrence of the external cause
CPT/HCPCS: 99283; Z7502

== ENCOUNTER 2022-09-15 00:54 | Emergency (ER) | payer OTHER ==
[~2022-09-15] VITALS: Ht 154.9 cm; Wt 57.7 kg
[~2022-09-15 00:54] MED LIST changes: -HALO10 PO; +HALO10TA21 PO; -HYD50 PO; +HYDR-4584 PO
[2022-09-15] MEDS ORDERED: LIDOCAINE 1% 10 ML VIAL ONE (01:13)
[2022-09-15] MEDS ORDERED: BACITRACIN 0.9 GM PACKET OINTMENT TP ONE (01:15)
[2022-09-15] MEDS ORDERED: OxyCODONE HCL 5 MG IR TABLET PO ONE (01:15)
[2022-09-15] MEDS ORDERED: LIDOCAINE 1% 10 ML VIAL SQ ONE (01:15)
[2022-09-15] MEDS ORDERED: PERTUSS(ACELL),DIPH,TET VAC/PF 0.5 ML SYRINGE IM. ONE (01:15)
[2022-09-15] MEDS ORDERED: DOXYCYCLINE HYCLATE 100 MG TABLET PO ONE (02:00)
[2022-09-15] MEDS ORDERED: AMOX TR/POT CLAV 875 MG/125 MG TABLET PO ONE (02:00)
[2022-09-15] MEDS ORDERED: IBUP-1492 PO (02:17)
[2022-09-15] MEDS ORDERED: DOXY-354 PO (02:17)
[2022-09-15] MEDS ORDERED: AMOX1TAB16 PO (02:17)
[2022-09-15 02:24] VITALS: BP 117/71
== END 2022-09-15 02:41 | disposition still patient (30) ==
LOC: EMS 00:54
DX: S60.455A Superficial foreign body of left ring finger, initial encounter (principal); L08.9 Local infection of the skin and subcutaneous tissue, unspecified; F41.9 Anxiety disorder, unspecified; F31.9 Bipolar disorder, unspecified; F20.9 Schizophrenia, unspecified; F17.210 Nicotine dependence, cigarettes, uncomplicated; F15.90 Other stimulant use, unspecified, uncomplicated; Z90.49 Acquired absence of other specified parts of digestive tract; Z98.890 Other specified postprocedural states; W45.8XXA Other foreign body or object entering through skin, initial encounter; Y93.89 Activity, other specified; Y92.89 Other specified places as the place of occurrence of the external cause; Y99.8 Other external cause status
CPT/HCPCS: 99284; 90715; 90471; J3490

== ENCOUNTER 2022-12-29 06:30 | Emergency (ER) | payer OTHER ==
[~2022-12-29 06:30] MED LIST changes: +AMOX1TAB16 PO; +DOXY-354 PO; +IBUP-1492 PO
== END 2022-12-29 06:47 | disposition left against medical advice (07) ==
LOC: EMS 06:31
DX: Z53.21 Procedure and treatment not carried out due to patient leaving prior to being seen by health care provider (principal)

== ENCOUNTER 2023-01-12 06:36 | Emergency (ER) | payer OTHER ==
[~2023-01-12] VITALS: Ht 154.9 cm; Wt 55.0 kg
[2023-01-12 06:44] VITALS: BP 135/72; PULSE 84; RESP 20; TEMP 97.9
== END 2023-01-12 07:08 | disposition left against medical advice (07) ==
LOC: EMS 06:38
DX: Z53.21 Procedure and treatment not carried out due to patient leaving prior to being seen by health care provider (principal)
CPT/HCPCS: 99281; Z7502

== ENCOUNTER 2023-02-16 11:04 | Inpatient (IN) | payer MEDICAID, OTHER ==
[~2023-02-16] VITALS: Ht 157.5 cm; Wt 52.0 kg
[2023-02-16] MEDS ORDERED: HALOPERIDOL LACTATE 5 MG/ML VIAL IM ONE (11:45)
[2023-02-16] MEDS ORDERED: LORazepam 2 MG/ML VIAL IM ONE (11:45)
[2023-02-16] MEDS ORDERED: DiphenhydrAMINE HCL 50 MG/ML VIAL IM ONE (11:45)
[2023-02-16] MEDS ORDERED: DOCU-385 PO (11:46)
[2023-02-16 12:22] LABS: COVID AG,FIA SOURCE NASAL SWAB
[2023-02-16] MEDS ORDERED: OLANZapine 5 MG RAPDIS TABLET PO PRN (12:45)
[2023-02-16] MEDS ORDERED: ZOLPIDEM TARTRATE 10 MG TABLET PO PRN (12:45)
[2023-02-16 12:54] LABS: SARS-COV2 (COVID) ANTIGEN,FIA Negative (Negative)
[2023-02-16 13:24] LABS: BASOPHILS % (AUTO) 0.9 % (0.0-2.0); EOSINOPHILS % (AUTO) 1.4 % (1.0-6.0); HEMATOCRIT 35.3 % (36-46); HEMOGLOBIN 12.1 g/dL (12.0-16.0); LYMPHOCYTES # (AUTO) 1.3 K/uL (1.0-4.8); LYMPHOCYTES % (AUTO) 34.5 % (22.0-44.0); MEAN CORPUSCULAR HEMOGLOBIN 32.3 pg (26.0-34.0); MEAN CORPUSCULAR HGB CONC 34.3 G/dL (31.0-37.0); MEAN CORPUSCULAR VOLUME 94 fL (80-100); MONOCYTES # (AUTO) 0.3 K/uL (0.1-1.0); MONOCYTES % (AUTO) 8.2 % (2.0-9.0); NEUTROPHILS # (AUTO) 2.1 K/uL (1.8-7.7); PLATELET COUNT (AUTO) 214 K/uL (150-450); RED BLOOD CELL COUNT(AUTO) 3.75 MIL/uL (4.00-5.20); WHITE BLOOD COUNT (AUTO) 3.9 K/uL (4.5-11.0)
[2023-02-16 13:25] LABS: RBC MORPHOLOGY COMMENT NORMAL RBC MORPH
[2023-02-16 13:40] LABS: ANION GAP 6 mmol/L (8-16); CALCIUM, TOTAL 8.6 mg/dL (8.8-10.5); CARBON DIOXIDE 29 mmol/L (22-29); CHLORIDE 106 mmol/L (98-107); CREATININE 0.69 mg/dL (0.60-1.30); GLOMERULAR FILTR. RATE CALC > 60 mL/min (>60); GLUCOSE,RANDOM 122 mg/dL (70-110); POTASSIUM 3.4 mmol/L (3.5-5.1); SODIUM SERUM 141 mmol/L (136-145); UREA NITROGEN, BLOOD 15 mg/dL (7-18)
[2023-02-16 13:45] LABS: ALCOHOL, BLOOD (SERUM) < 3 mg/dL (0-10)
[2023-02-16 13:46] LABS: ALANINE AMINOTRANSFERASE 36 U/L (12-78); ALBUMIN 3.4 g/dL (3.4-5.0); ALKALINE PHOSPHATASE 69 U/L (46-116); ASPARTATE AMINOTRANSFERASE 32 U/L (15-37); BILIRUBIN,TOTAL 0.4 mg/dL (0.1-1.0); TOTAL PROTEIN, SERUM 6.9 g/dL (6.4-8.2)
[2023-02-16] MEDS ORDERED: POTASSIUM CHLORIDE 10% 40 MEQ/30 ML LIQUID UDCUP PO ONE (14:30)
[2023-02-16 16:25] VITALS: BP 106/72; PULSE 72; RESP 17; TEMP 98; O2SAT 98
[2023-02-16 22:17] VITALS: RESP 18; TEMP 98.1
[2023-02-17] MEDS ORDERED: DOCUSATE SODIUM 100 MG CAPSULE PO PRN (05:45)
[2023-02-17] MEDS ORDERED: IBUPROFEN 600 MG TABLET PO PRN (05:45)
[2023-02-17] MEDS ORDERED: ALBUTEROL SULFATE HFA 90 MCG/PUFF 8 GM INHALER IH PRN (05:45)
[2023-02-17] MEDS ORDERED: BENZOCAINE/MENTHOL LOZENGE PO PRN (05:45)
[2023-02-17] MEDS ORDERED: MAGNESIUM HYDROXIDE SUSPENSION 30 ML UDCUP PO PRN (05:45)
[2023-02-17] MEDS ORDERED: LOPERAMIDE HCL 2 MG CAPSULE PO PRN ×2 (05:45→15:45)
[2023-02-17] MEDS ORDERED: ONDANSETRON HCL 4 MG TABLET PO PRN (05:45)
[2023-02-17] MEDS ORDERED: OMEPRAZOLE 20 MG CAPSULE PO PRN (05:45)
[2023-02-17] MEDS ORDERED: ACETAMINOPHEN 325 MG TABLET PO PRN (05:45)
[2023-02-17] MEDS ORDERED: CloNIDine HCL 0.1 MG TABLET PO PRN (05:45)
[2023-02-17] MEDS ORDERED: MAG HYDROX/ALUMINUM HYD/SIMETH ES 30 ML SUSPENSION UDCUP PO PRN (05:45)
[2023-02-17] MEDS ORDERED: PETROLATUM,WHITE 28 GM JELLY TP PRN (05:45)
[2023-02-17] MEDS ORDERED: BACITRACIN 28 GM OINTMENT TP PRN (05:45)
[2023-02-17] MEDS ORDERED: LORazepam 2 MG/ML VIAL ONE (07:40)
[2023-02-17] MEDS ORDERED: HALOPERIDOL LACTATE 5 MG/ML VIAL ONE (07:40)
[2023-02-17] MEDS ORDERED: DiphenhydrAMINE HCL 50 MG/ML VIAL ONE (07:40)
[2023-02-17] MEDS ORDERED: DiphenhydrAMINE HCL 50 MG/ML VIAL IM ONE (07:45)
[2023-02-17] MEDS ORDERED: LORazepam 2 MG/ML VIAL IM ONE (07:45)
[2023-02-17] MEDS ORDERED: HALOPERIDOL LACTATE 5 MG/ML VIAL IM ONE (07:45)
[2023-02-17 08:16] VITALS: RESP 18
[2023-02-17] MEDS ORDERED: TUBERCULIN, PURIFIED PROTEIN DERIVATIVE 5 TU/0.1 ML SYRINGE ID ONE (15:45)
[2023-02-17] MEDS ORDERED: OLANZapine 5 MG RAPDIS TABLET PO PRN (15:45)
[2023-02-17] MEDS ORDERED: GuaiFENesin/D-METHORPHAN [SUGAR-FREE] 200-20MG/10 ML SYRUP UDCUP PO PRN (15:45)
[2023-02-17] MEDS ORDERED: PROMETHAZINE HCL 25 MG TABLET PO PRN (15:45)
[2023-02-17] MEDS ORDERED: HydrOXYzine PAMOATE 50 MG CAPSULE PO PRN (15:45)
[2023-02-17] MEDS: THIAMINE 100 MG TABLET PO SCH (17:00)
[2023-02-17] MEDS ORDERED: OLANZapine 5 MG RAPDIS TABLET PO SCH (21:00)
[2023-02-17] MEDS: MELATONIN 5 MG TABLET PO SCH (21:00)
[2023-02-17 22:13] VITALS: BP 104/63; PULSE 95; RESP 18; TEMP 97.5
[2023-02-18] MEDS: LORazepam 2 MG TABLET PO PRN (06:21)
[2023-02-18] MEDS: MULTIVITAMINS WITH MINERALS, THERAPEUTIC TABLET PO SCH ×2 (08:24→09:00)
[2023-02-18] MEDS: FOLIC ACID 1 MG TABLET PO SCH ×2 (08:24→09:00)
[2023-02-18] MEDS: THIAMINE 100 MG TABLET PO SCH ×3 (08:24→17:00)
[2023-02-18] MEDS: NALTREXONE HCL 50 MG TABLET PO SCH ×2 (08:24→09:00)
[2023-02-18] MEDS: OMEGA-3/DHA/EPA/FISH OIL 1,000 MG CAPSULE PO SCH ×2 (08:24→09:00)
[2023-02-18 08:27] VITALS: BP 102/60; PULSE 85; RESP 16; TEMP 97.5; O2SAT 98
[2023-02-18] MEDS ORDERED: PALIPERIDONE PALMITATE 234 MG/1.5 ML SYRINGE IM ONE (09:00)
[2023-02-18] MEDS: OLANZapine 10 MG RAPDIS TABLET PO SCH (21:04)
[2023-02-18] MEDS: MELATONIN 5 MG TABLET PO SCH (21:04)
[2023-02-19] MEDS ORDERED: POTASSIUM CHLORIDE 20 MEQ ER TABLET PO ONE ×2 (07:45→21:00)
[2023-02-19] MEDS: OMEGA-3/DHA/EPA/FISH OIL 1,000 MG CAPSULE PO SCH (08:22)
[2023-02-19] MEDS: THIAMINE 100 MG TABLET PO SCH ×2 (08:22→16:03)
[2023-02-19] MEDS: MULTIVITAMINS WITH MINERALS, THERAPEUTIC TABLET PO SCH (08:22)
[2023-02-19] MEDS: NALTREXONE HCL 50 MG TABLET PO SCH (08:22)
[2023-02-19] MEDS: LORazepam 2 MG TABLET PO PRN (08:23)
[2023-02-19] MEDS: FOLIC ACID 1 MG TABLET PO SCH (08:23)
[2023-02-19 09:01] LABS: HEMOGLOBIN A1C 5.7 % (3.8-5.6)
[2023-02-19 10:11] LABS: ANION GAP 9 mmol/L (8-16); CALCIUM, TOTAL 9.3 mg/dL (8.8-10.5); CARBON DIOXIDE 27 mmol/L (22-29); CHLORIDE 104 mmol/L (98-107); CHOL/HDL RATIO 2.4 (3.9-5.7); CHOLESTEROL 170 mg/dL (131-200); CREATININE 0.58 mg/dL (0.60-1.30); FREE T4 (FREE THYROXINE) 0.94 ng/dL (0.76-1.46); GLOMERULAR FILTR. RATE CALC > 60 mL/min (>60); GLUCOSE,RANDOM 111 mg/dL (70-110); HDL CHOLESTEROL 70 mg/dL (40-60); LDL CHOL (CALC.) 91 mg/dL (0-130); POTASSIUM 4.4 mmol/L (3.5-5.1); SODIUM SERUM 140 mmol/L (136-145); THYROID STIMULATING HORMONE 1.08 uIU/mL (0.36-3.74); TRIGLYCERIDES 47 mg/dL (15-150); UREA NITROGEN, BLOOD 11 mg/dL (7-18)
[2023-02-19] MEDS: MELATONIN 5 MG TABLET PO SCH (20:38)
[2023-02-19] MEDS: OLANZapine 10 MG RAPDIS TABLET PO SCH (20:38)
[2023-02-19] MEDS: DIVALPROEX SODIUM 500 MG ER TABLET PO SCH (20:38)
[2023-02-19 20:55] VITALS: BP 117/75; PULSE 101; RESP 18; TEMP 97.2; O2SAT 97
[2023-02-20] MEDS: OMEGA-3/DHA/EPA/FISH OIL 1,000 MG CAPSULE PO SCH ×10 (07:53→13:36)
[2023-02-20] MEDS: FOLIC ACID 1 MG TABLET PO SCH ×4 (07:53→12:07)
[2023-02-20] MEDS: NALTREXONE HCL 50 MG TABLET PO SCH ×5 (07:53→11:18)
[2023-02-20] MEDS: MULTIVITAMINS WITH MINERALS, THERAPEUTIC TABLET PO SCH ×2 (07:54→09:00)
[2023-02-20] MEDS: THIAMINE 100 MG TABLET PO SCH ×2 (07:54→09:00)
[2023-02-20 08:02] VITALS: RESP 17
[2023-02-20] MEDS: MELATONIN 5 MG TABLET PO SCH (20:05)
[2023-02-20] MEDS: OLANZapine 10 MG RAPDIS TABLET PO SCH (20:05)
[2023-02-20] MEDS: DIVALPROEX SODIUM 500 MG ER TABLET PO SCH (20:06)
[2023-02-20 20:31] VITALS: BP 109/61; PULSE 98; RESP 16; TEMP 98.3; O2SAT 96
[2023-02-20] MEDS: LORazepam 2 MG TABLET PO PRN (22:43)
[2023-02-21 08:07] VITALS: BP 105/63; PULSE 71; RESP 18; TEMP 97.8; O2SAT 98
[2023-02-21] MEDS: NALTREXONE HCL 50 MG TABLET PO SCH (08:33)
[2023-02-21] MEDS: OMEGA-3/DHA/EPA/FISH OIL 1,000 MG CAPSULE PO SCH (08:33)
[2023-02-21] MEDS: MULTIVITAMINS WITH MINERALS, THERAPEUTIC TABLET PO SCH (08:34)
[2023-02-21] MEDS: THIAMINE 100 MG TABLET PO SCH (16:05)
[2023-02-21 20:00] VITALS: BP 113/68; PULSE 78; RESP 18; TEMP 97.2; O2SAT 97
[2023-02-21] MEDS: MELATONIN 5 MG TABLET PO SCH (20:33)
[2023-02-21] MEDS: OLANZapine 10 MG RAPDIS TABLET PO SCH (20:33)
[2023-02-21] MEDS: DIVALPROEX SODIUM 500 MG ER TABLET PO SCH (20:37)
[2023-02-22 08:05] VITALS: BP 112/69; PULSE 69; RESP 16; TEMP 97.8; O2SAT 95
[2023-02-22] MEDS: OMEGA-3/DHA/EPA/FISH OIL 1,000 MG CAPSULE PO SCH (08:36)
[2023-02-22] MEDS: FOLIC ACID 1 MG TABLET PO SCH (08:36)
[2023-02-22] MEDS: THIAMINE 100 MG TABLET PO SCH ×2 (08:37→16:32)
[2023-02-22] MEDS: NALTREXONE HCL 50 MG TABLET PO SCH (08:37)
[2023-02-22] MEDS: MULTIVITAMINS WITH MINERALS, THERAPEUTIC TABLET PO SCH (08:37)
[2023-02-22] MEDS ORDERED: PALIPERIDONE PALMITATE 156 MG/ML SYRINGE IM ONE (09:00)
[2023-02-22] MEDS ORDERED: DiphenhydrAMINE HCL 50 MG/ML VIAL IM ONE (10:30)
[2023-02-22] MEDS ORDERED: HALOPERIDOL LACTATE 5 MG/ML VIAL IM ONE (10:30)
[2023-02-22] MEDS ORDERED: LORazepam 2 MG/ML VIAL IM ONE (10:30)
[2023-02-22 11:55] VITALS: BP 103/55; PULSE 84; RESP 16; TEMP 98.4; O2SAT 98
[2023-02-22] MEDS: OLANZapine 10 MG RAPDIS TABLET PO SCH (20:50)
[2023-02-22] MEDS: MELATONIN 5 MG TABLET PO SCH (20:50)
[2023-02-22] MEDS: DIVALPROEX SODIUM 500 MG ER TABLET PO SCH (21:00)
[2023-02-22 22:00] VITALS: RESP 18; TEMP 98
[2023-02-23 08:13] VITALS: BP 110/63; PULSE 79; RESP 16; TEMP 97.8; O2SAT 96
[2023-02-23] MEDS: NALTREXONE HCL 50 MG TABLET PO SCH (09:00)
[2023-02-23] MEDS: THIAMINE 100 MG TABLET PO SCH ×2 (09:00→16:20)
[2023-02-23] MEDS: MULTIVITAMINS WITH MINERALS, THERAPEUTIC TABLET PO SCH (09:00)
[2023-02-23] MEDS: OMEGA-3/DHA/EPA/FISH OIL 1,000 MG CAPSULE PO SCH (09:00)
[2023-02-23] MEDS: FOLIC ACID 1 MG TABLET PO SCH (09:00)
[2023-02-23 20:03] VITALS: RESP 17
[2023-02-23] MEDS: OLANZapine 10 MG RAPDIS TABLET PO SCH (21:00)
[2023-02-23] MEDS: MELATONIN 5 MG TABLET PO SCH (21:00)
[2023-02-23] MEDS: DIVALPROEX SODIUM 500 MG ER TABLET PO SCH (21:00)
[2023-02-24 08:07] VITALS: RESP 18
[2023-02-24] MEDS: NALTREXONE HCL 50 MG TABLET PO SCH (09:00)
[2023-02-24] MEDS: OMEGA-3/DHA/EPA/FISH OIL 1,000 MG CAPSULE PO SCH (09:00)
[2023-02-24] MEDS: MULTIVITAMINS WITH MINERALS, THERAPEUTIC TABLET PO SCH (09:00)
[2023-02-24] MEDS: FOLIC ACID 1 MG TABLET PO SCH (09:00)
[2023-02-24] MEDS: THIAMINE 100 MG TABLET PO SCH ×2 (09:00→16:07)
[2023-02-24] MEDS ORDERED: PALIPERIDONE PALMITATE 234 MG/1.5 ML SYRINGE IM ONE (09:00)
[2023-02-24] MEDS: MELATONIN 5 MG TABLET PO SCH (20:11)
[2023-02-24] MEDS: OLANZapine 10 MG RAPDIS TABLET PO SCH (20:11)
[2023-02-24] MEDS: DIVALPROEX SODIUM 500 MG ER TABLET PO SCH (20:11)
[2023-02-24 20:17] VITALS: RESP 18
[2023-02-25 08:08] VITALS: BP 103/60; PULSE 67; RESP 17; TEMP 97.7; O2SAT 97
[2023-02-25] MEDS: THIAMINE 100 MG TABLET PO SCH ×2 (08:15→16:48)
[2023-02-25] MEDS: MULTIVITAMINS WITH MINERALS, THERAPEUTIC TABLET PO SCH (08:16)
[2023-02-25] MEDS: NALTREXONE HCL 50 MG TABLET PO SCH (08:16)
[2023-02-25] MEDS: OMEGA-3/DHA/EPA/FISH OIL 1,000 MG CAPSULE PO SCH (08:17)
[2023-02-25] MEDS: FOLIC ACID 1 MG TABLET PO SCH (08:17)
[2023-02-25] MEDS: MELATONIN 5 MG TABLET PO SCH (20:26)
[2023-02-25] MEDS: DIVALPROEX SODIUM 500 MG ER TABLET PO SCH (20:26)
[2023-02-25] MEDS: OLANZapine 10 MG RAPDIS TABLET PO SCH (20:26)
[2023-02-25 20:41] VITALS: BP 105/61; PULSE 77; RESP 18; TEMP 98.3; O2SAT 97
[2023-02-26 08:00] LABS: ANION GAP 4 mmol/L (8-16); CALCIUM, TOTAL 8.6 mg/dL (8.8-10.5); CARBON DIOXIDE 29 mmol/L (22-29); CHLORIDE 105 mmol/L (98-107); CREATININE 0.54 mg/dL (0.60-1.30); GLOMERULAR FILTR. RATE CALC > 60 mL/min (>60); GLUCOSE,RANDOM 94 mg/dL (70-110); POTASSIUM 4.3 mmol/L (3.5-5.1); SODIUM SERUM 138 mmol/L (136-145); UREA NITROGEN, BLOOD 13 mg/dL (7-18)
[2023-02-26] MEDS: NALTREXONE HCL 50 MG TABLET PO SCH (08:11)
[2023-02-26] MEDS: OMEGA-3/DHA/EPA/FISH OIL 1,000 MG CAPSULE PO SCH (08:11)
[2023-02-26] MEDS: FOLIC ACID 1 MG TABLET PO SCH (08:11)
[2023-02-26] MEDS: MULTIVITAMINS WITH MINERALS, THERAPEUTIC TABLET PO SCH (08:11)
[2023-02-26] MEDS: THIAMINE 100 MG TABLET PO SCH ×2 (08:11→16:33)
[2023-02-26 08:22] VITALS: RESP 16
[2023-02-26 20:03] VITALS: BP 110/63; PULSE 82; RESP 18; TEMP 98.7; O2SAT 95
[2023-02-26] MEDS: DIVALPROEX SODIUM 500 MG ER TABLET PO SCH (20:35)
[2023-02-26] MEDS: MELATONIN 5 MG TABLET PO SCH (20:35)
[2023-02-26] MEDS: OLANZapine 10 MG RAPDIS TABLET PO SCH (20:36)
[2023-02-27] MEDS: OMEGA-3/DHA/EPA/FISH OIL 1,000 MG CAPSULE PO SCH (08:09)
[2023-02-27] MEDS: NALTREXONE HCL 50 MG TABLET PO SCH (08:09)
[2023-02-27] MEDS: FOLIC ACID 1 MG TABLET PO SCH (08:09)
[2023-02-27] MEDS: THIAMINE 100 MG TABLET PO SCH (08:09)
[2023-02-27] MEDS: MULTIVITAMINS WITH MINERALS, THERAPEUTIC TABLET PO SCH (08:09)
[2023-02-27 08:15] VITALS: BP 99/59; PULSE 68; RESP 16; TEMP 97.3; O2SAT 97
[2023-02-27] MEDS: OLANZapine 10 MG RAPDIS TABLET PO SCH (20:04)
[2023-02-27] MEDS: MELATONIN 5 MG TABLET PO SCH (20:04)
[2023-02-27] MEDS: DIVALPROEX SODIUM 500 MG ER TABLET PO SCH (20:04)
[2023-02-27 20:15] VITALS: BP 107/57; PULSE 69; RESP 16; TEMP 97.7; O2SAT 98
[2023-02-28] MEDS: MULTIVITAMINS WITH MINERALS, THERAPEUTIC TABLET PO SCH (08:03)
[2023-02-28] MEDS: OMEGA-3/DHA/EPA/FISH OIL 1,000 MG CAPSULE PO SCH (08:03)
[2023-02-28] MEDS: NALTREXONE HCL 50 MG TABLET PO SCH (08:04)
[2023-02-28 08:37] VITALS: BP 112/69; PULSE 78; RESP 16; TEMP 97.9; O2SAT 97
[2023-02-28] MEDS: MELATONIN 5 MG TABLET PO SCH (20:23)
[2023-02-28] MEDS: OLANZapine 10 MG RAPDIS TABLET PO SCH (20:23)
[2023-02-28] MEDS: DIVALPROEX SODIUM 500 MG ER TABLET PO SCH (20:23)
[2023-03-01 07:11] VITALS: RESP 18
[2023-03-01] MEDS: NALTREXONE HCL 50 MG TABLET PO SCH (08:06)
[2023-03-01] MEDS: OMEGA-3/DHA/EPA/FISH OIL 1,000 MG CAPSULE PO SCH (08:06)
[2023-03-01] MEDS: MULTIVITAMINS WITH MINERALS, THERAPEUTIC TABLET PO SCH (08:06)
[2023-03-01 08:11] VITALS: BP 88/43; PULSE 67; RESP 16; TEMP 98.1; O2SAT 97
[2023-03-01] MEDS: OLANZapine 10 MG RAPDIS TABLET PO SCH (20:08)
[2023-03-01] MEDS: MELATONIN 5 MG TABLET PO SCH (20:08)
[2023-03-01] MEDS: DIVALPROEX SODIUM 500 MG ER TABLET PO SCH (20:08)
[2023-03-01 23:46] VITALS: BP 95/65; PULSE 98; RESP 16; TEMP 98.1; O2SAT 98
[2023-03-02 08:13] VITALS: BP 113/69; PULSE 78; RESP 16; TEMP 97.6; O2SAT 96
[2023-03-02] MEDS: MULTIVITAMINS WITH MINERALS, THERAPEUTIC TABLET PO SCH (08:13)
[2023-03-02] MEDS: NALTREXONE HCL 50 MG TABLET PO SCH (08:13)
[2023-03-02] MEDS: OMEGA-3/DHA/EPA/FISH OIL 1,000 MG CAPSULE PO SCH (08:13)
[2023-03-02] MEDS ORDERED: PALIPERIDONE PALMITATE 234 MG/1.5 ML SYRINGE IM ONE (14:45)
[2023-03-02] MEDS ORDERED: GABAPENTIN 300 MG CAPSULE PO PRN (15:30)
[2023-03-02] MEDS ORDERED: ESZOPICLONE 3 MG TABLET PO PRN (15:30)
[2023-03-02 18:52] LABS: GLUCOMETER DEV NAME(LOC) POC.BV; POC SARS-COV2 AG, FIA NEGATIVE (NEGATIVE)
[2023-03-02] MEDS: OLANZapine 10 MG RAPDIS TABLET PO SCH (20:12)
[2023-03-02] MEDS: DIVALPROEX SODIUM 500 MG ER TABLET PO SCH (20:13)
[2023-03-02] MEDS: MELATONIN 5 MG TABLET PO SCH (20:15)
[2023-03-02] MEDS ORDERED: OMEG-135 PO (21:02)
[2023-03-02] MEDS ORDERED: DIVA500T69 PO (21:02)
[2023-03-02] MEDS ORDERED: OLAN10TA26 PO (21:02)
[2023-03-02] MEDS ORDERED: MELA5TAB40 PO (21:02)
[2023-03-02] MEDS ORDERED: NALT50TA PO (21:02)
[2023-03-02 21:05] VITALS: BP 105/60; PULSE 67; RESP 18; TEMP 97.5; O2SAT 100
[2023-03-03] MEDS: NALTREXONE HCL 50 MG TABLET PO SCH (08:08)
[2023-03-03] MEDS: MULTIVITAMINS WITH MINERALS, THERAPEUTIC TABLET PO SCH (08:08)
[2023-03-03] MEDS: OMEGA-3/DHA/EPA/FISH OIL 1,000 MG CAPSULE PO SCH (08:08)
[2023-03-03 08:32] VITALS: RESP 18
[2023-03-06] MEDS ORDERED: PALIPERIDONE PALMITATE 156 MG/ML SYRINGE IM ONE (09:00)
[2023-03-24] MEDS ORDERED: PALIPERIDONE PALMITATE 234 MG/1.5 ML SYRINGE IM SCH (09:00)
== END 2023-03-03 12:13 | disposition home or self-care (01) | DRG 750 ==
LOC: EMS 11:06 → B3A 13:45
PROVIDERS: ADMIT Psychiatry & Neurology Psychiatry; ATTEND Psychiatry & Neurology Psychiatry
DX: F20.0 Paranoid schizophrenia (principal); E87.6 Hypokalemia; F17.210 Nicotine dependence, cigarettes, uncomplicated; Z20.822 Contact with and (suspected) exposure to COVID-19; F41.9 Anxiety disorder, unspecified; T43.596A Underdosing of other antipsychotics and neuroleptics, initial encounter; Y92.89 Other specified places as the place of occurrence of the external cause; Z79.899 Other long term (current) drug therapy; Z90.49 Acquired absence of other specified parts of digestive tract; Z98.891 History of uterine scar from previous surgery; Z59.00 Homelessness unspecified
CPT/HCPCS: 80048; 80053; 80061; 80164; 83036; 84439; 84443; 85025; 86592; 99291; G0480; J1200; J1630; J2060; Q9967